=== PATIENT | male | born 1945 | race Caucasian/White ===

== ENCOUNTER 2024-05-17 16:01 | Emergency (ER) | payer MEDICARE ==
[2024-05-17 16:01] VITALS: PULSE 88; RESP 16; TEMP 98.4; O2SAT 98
== END 2024-05-17 17:48 ==
LOC: ER 16:08
DX: Z04.3 Encounter for examination and observation following other accident (principal); W01.0XXA Fall on same level from slipping, tripping and stumbling without subsequent striking against object, initial encounter; Y93.01 Activity, walking, marching and hiking; Y92.89 Other specified places as the place of occurrence of the external cause; F03.90 Unspecified dementia, unspecified severity, without behavioral disturbance, psychotic disturbance, mood disturbance, and anxiety; I10 Essential (primary) hypertension; E78.5 Hyperlipidemia, unspecified
CPT/HCPCS: 70450; 72125; 99284